=== PATIENT | female | born 1990 | race African-American/Black ===

== ENCOUNTER 2019-09-03 20:42 | Emergency (ER) | payer OTHER ==
[~2019-09-03] VITALS: Ht 162.6 cm; Wt 131.5 kg
[~2019-09-03 20:42] MED LIST: HYDROCHLOROTHIA25 MG PO
--- OUTSIDE RECORDS SUMMARY | 2019-09-03 20:44 | XMS REPORT ---
Author Author [facility], [place] Address Unknown Phone Unavailable Care Team Providers Care Scheduling Representative Name Role Phone Unavailable Unavailable Problems This patient has no known problems. Allergies, Adverse Reactions, Alerts This patient has no known allergies or adverse reactions. Medications This patient has no known medications. Encounters Start Date/Time End Date/Time Encounter Type Admission Type Attending [facility] Facility Care Department Encounter ID 2019-04-15 03:07:00 2019-04-15 03:07:00 Emergency E [id number]
[2019-09-03] MEDS ORDERED: HYDROCODONE/APAP 5MG-325MG TAB ONE (21:28)
[2019-09-03] MEDS ORDERED: HYDROCODONE/APAP 5MG-325MG TAB PO ONE (21:30)
[2019-09-03] MEDS ORDERED: MOTRIN800 MG PO (21:52)
[2019-09-03] MEDS ORDERED: SKELAXIN800 MG PO (21:52)
--- NOTE | 2019-09-03 21:54 | Diagnostic Imaging Report ---
X-ray left hand 3 views - HISTORY: Pain. Fall COMPARISON: None available. FINDINGS: Bones: No acute displaced fracture. Osseous alignment is within normal limits. Joints: Subtle dorsal subluxation of the third metacarpal at the metacarpal phalangeal joint. Soft tissues: Mild dorsal wrist/proximal hand soft tissue swelling. IMPRESSION: No acute displaced fracture. Subtle dorsal subluxation of the third metacarpal at the metacarpophalangeal joint, with mild dorsal wrist/proximal hand soft tissue swelling. Signed by: Ben Vidal DO on 09/03/2019 9:51 PM
--- NOTE | 2019-09-03 21:58 | Diagnostic Imaging Report ---
X-ray left elbow 3 views HISTORY: Pain. Fall COMPARISON: None available. FINDINGS: Bones: No acute displaced fracture. Osseous alignment is within normal limits. A 0.8 cm globular calcification at the lateral epicondyle/extensor insertion tendons. Joints: The joint spaces are well-maintained. Soft tissues: A 0.8 cm homogeneous globular calcification at the lateral epicondyle/extensor insertion tendons. IMPRESSION: No acute radiographic osseous abnormality. 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 Signed by: Ben Vidal DO on 09/03/2019 9:55 PM
== END 2019-09-03 22:11 | disposition home or self-care (01) ==
LOC: FSED 20:42
DX: S63.502A Unspecified sprain of left wrist, initial encounter (principal); S50.02XA Contusion of left elbow, initial encounter; W01.0XXA Fall on same level from slipping, tripping and stumbling without subsequent striking against object, initial encounter; Y93.01 Activity, walking, marching and hiking; Y92.008 Other place in unspecified non-institutional (private) residence as the place of occurrence of the external cause; I10 Essential (primary) hypertension
CPT/HCPCS: 99283

== ENCOUNTER 2022-02-23 19:04 | Emergency (ER) | payer OTHER ==
[~2022-02-23] VITALS: Ht 175.3 cm; Wt 117.9 kg
[~2022-02-23 19:04] MED LIST changes: +MOTRIN800 MG PO; +SKELAXIN800 MG PO
[2022-02-23 20:07] VITALS: BP 129/76
== END 2022-02-23 20:07 | disposition home or self-care (01) ==
LOC: FSED 19:25
DX: S83.8X1A Sprain of other specified parts of right knee, initial encounter (principal); V43.52XA Car driver injured in collision with other type car in traffic accident, initial encounter; Y92.488 Other paved roadways as the place of occurrence of the external cause; I10 Essential (primary) hypertension
CPT/HCPCS: 99282

== ENCOUNTER 2022-06-22 11:43 | Emergency (ER) | payer OTHER ==
[~2022-06-22] VITALS: Ht 175.3 cm; Wt 131.2 kg
[2022-06-22] MEDS ORDERED: METOPROLOL SUCC25 MG PO (12:33)
== END 2022-06-22 13:51 | disposition home or self-care (01) ==
LOC: FSED 11:56
DX: S00.83XA Contusion of other part of head, initial encounter (principal); R51.9 Headache, unspecified; Y04.8XXA Assault by other bodily force, initial encounter; Y92.89 Other specified places as the place of occurrence of the external cause; I10 Essential (primary) hypertension
CPT/HCPCS: 70450; 70486; 81025; 99283